=== PATIENT | male | born 1995 | race Caucasian/White ===

== ENCOUNTER 2016-08-14 09:07 | Emergency (ER) | payer MEDICAID ==
[~2016-08-14] VITALS: Wt 134.0 kg
[~2016-08-14 09:07] MED LIST: ACET325T33 PO; ASPI325T4 PO; FLUO40CA10 PO; IBUP-1542 PO; IBUP800T25 PO; NAPR-260 PO; OMEPRAZOLE PO; RANI150T9 PO
[2016-08-14] MEDS ORDERED: IBUP-1542 PO (10:03)
[2016-08-14] MEDS ORDERED: GABA300C16 PO (10:11)
--- NOTE | 2016-08-14 10:12 | RADRPT ---
PROCEDURE: XR Chest. CLINICAL INDICATION: Chest pain TECHNIQUE: Chest AP portable. COMPARISON: 05/28/2016 FINDINGS: The mediastinal structures are unremarkable. The heart is normal in size and configuration. The pu lmonary vascularity is normal. The lung [place] are unremarkable. No consolidation is identified. The pleural spaces are unremarkable. The axial skeleton is unremarkable. IMPRESSION: No active intrathoracic disease. RPTAT: HGDB .Fer Richardson MD, MD Date Time Electronically viewed and signed by .Fer Richardson MD, MD on 08/14/2016 10:12 .B/
--- NOTE | 2016-08-14 10:25 | ERD ---
ER Documentation Chief Complaint Date/Time DATE: 08/14/16 TIME: 10:25 Chief Complaint BILATERAL CALF PAIN FOR 4 DAYS. + HOMANS SIGN R LEG. HPI Patient is a 21-year-old male with OCD and GERD who presents with chest pain and calf pain. The patient has bilateral calf pain and chest pain rating down to his left arm. His dad has a history of blood clots he was concerned that maybe he had a blood clot. The symptoms started last night. He has no swelling in his legs however. He has no risk factors for DVT. He has no fevers. He took aspirin for pain. He goes to the [facility] for his care. ROS All systems reviewed and are negative except as per history of present illness. Medications Home Meds Active Scripts Ibuprofen* (Motrin*) 600 Mg Tab, 600 MG PO Q6H Y for PAIN AND OR ELEVATED TEMP, #30 TAB Prov:KIRA MURO MD 08/14/16 Reported Medications Gabapentin* (Gabapentin*) 300 Mg Capsule, 300 MG PO QHS, #60 CAP 08/14/16 Discontinued Reported Medications Aspirin* (Aspirin*) 325 Mg Tablet, 650 MG PO DAILY, TAB 10/21/15 [Omeprazole] No Conflict Check, PO DAILY 10/21/15 Fluoxetine Hcl* (Prozac*) 40 Mg Capsule, 40 MG PO DAILY, CAP 05/21/15 Discontinued Scripts Ibuprofen* (Motrin*) 800 Mg Tab, 800 MG PO Q6, #30 TAB Prov:RAFAEL FISHMAN PA-C 05/14/16 Naproxen* (Naprosyn*) 500 Mg Tablet, 500 MG PO BID Y for PAIN AND/OR INFLAMMATION, #30 TAB Prov:RASHIDA FREEDMAN PA-C 04/01/16 Ranitidine Hcl* (Zantac*) 150 Mg Tablet, 150 MG PO BID Y for EPIGASTRIC PAIN, # 30 TAB Prov:RASHIDA FREEDMAN PA-C 03/21/16 Acetaminophen* (Tylenol*) 325 Mg Tablet, 2 TAB PO Q8 Y for PAIN AND OR ELEVATED TEMP, #20 TAB Prov:RASHIDA FREEDMAN PA-C 03/21/16 Ibuprofen* (Ibuprofen*) 600 Mg Tablet, 600 MG PO Q8, #14 TAB Prov:ALYSON SPENCE DO 01/26/16 Ibuprofen* (Motrin*) 800 Mg Tab, 800 MG PO Q6H Y for PAIN AND OR ELEVATED TEMP, #30 TAB Prov:LAZARO COX PA-C 10/30/15 Allergies Allergies: Coded Allergies: No Known Allergy (Unverified , 08/14/16) PMhx/Soc History of Surgery: No Anesthesia Reaction: No Hx Neurological Disorder: Yes (SCIATICA) Hx Respiratory Disorders: No Hx Cardiac Disorders: No Hx Psychiatric Problems: Yes (OCD) Hx Miscellaneous Medical Probl: Yes (GERD) Hx Alcohol Use: Yes (RARELY) Hx Substance Use: Yes (MARIJUANA) Hx Tobacco Use: No Smoking Status: Never smoker FmHx Family History: diabetes Physical Exam Vitals Vital Signs Date Time Temp Pulse Resp B/P Pulse Ox O2 Delivery O2 Flow Rate FiO2 08/14/16 10:35 98.8 80 20 136/78 99 Room Air 08/14/16 09:10 98.8 87 20 141/84 99 Physical Exam Const: No acute distress Head: Atraumatic Eyes: Normal Conjunctiva ENT: Normal External Ears, Nose and Mouth. Neck: Full range of motion..~ No meningismus. Resp: Clear to auscultation bilaterally Cardio: Regular rate and rhythm, no murmurs Abd: Soft, non tender, non distended. Normal bowel sounds Skin: No petechiae or rashes Back: No midline or flank tenderness Ext: No cyanosis, or edema Neur: Awake and alert Psych: Anxious Procedures/MDM EKG read by me: Rate/Rhythm: Regular rate and rhythm at a rate of 90 Intervals: Normal Impression: No evidence of ischemia or arrhythmia Chest x-ray negative per radiology. Patient is a 21-year-old male presents with what appears to be acute anxiety. His EKG and chest x-ray were negative. He has no signs of DVT on physical exam. I did review the emergency department information exchange which suggested a psychologist social evaluation given the multiple visits to various emergency departments. insurance and financial services agent did an evaluation and did offer outpatient resources. The patient can return for any worsening symptoms. I do not believe he needs further workup or admission at this time. I doubt acute coronary syndrome, pneumonia, pneumothorax, pulmonary embolism, or aortic dissection. Departure Diagnosis: Primary Impression: Chest pain Chest pain type: unspecified Qualified Code: R07.9 - Chest pain, unspecified type Additional Impression: Bilateral leg pain Condition: Fair Patient Instructions: Possible Causes of Low Back or Leg Pain, Chest Pain, Uncertain Cause Referrals: Your doctor Additional Instructions: Call your primary care doctor TOMORROW for an appointment during the next 1 WEEK.Tell the upper stitcher that you were referred from this facility.See the doctor sooner or return here if your condition worsens before your appointment time. KIRA MURO MD Aug 14, 2016 10:25
[2016-08-14 10:35] VITALS: BP 136/78; PULSE 80; RESP 20; TEMP 98.8
== END 2016-08-14 10:35 | disposition home or self-care (01) ==
LOC: E/R 09:07
DX: R07.9 Chest pain, unspecified (principal); R40.2252 Coma scale, best verbal response, oriented, at arrival to emergency department; M79.605 Pain in left leg; M79.604 Pain in right leg; R40.2142 Coma scale, eyes open, spontaneous, at arrival to emergency department; R40.2362 Coma scale, best motor response, obeys commands, at arrival to emergency department; Z79.82 Long term (current) use of aspirin
CPT/HCPCS: 71010; 93005; Z7502

== ENCOUNTER 2017-01-05 09:27 | Emergency (ER) | payer MEDICAID, OTHER ==
[~2017-01-05] VITALS: Ht 195.6 cm; Wt 142.5 kg
[~2017-01-05 09:27] MED LIST changes: -ACET325T33 PO; -ASPI325T4 PO; -FLUO40CA10 PO; +GABA300C16 PO; -IBUP800T25 PO; -NAPR-260 PO; -OMEPRAZOLE PO; -RANI150T9 PO
[2017-01-05 09:34] VITALS: Ht 195.6 cm; Wt 142.5 kg
[2017-01-05] MEDS ORDERED: ASPIRIN 325 MG TAB PO STA (09:49)
[2017-01-05] MEDS ORDERED: SOD CHLORIDE 0.9% 100 ML ONE ×2 (09:55→11:53)
[2017-01-05] MEDS ORDERED: IOHEXOL 100 ML ONE (09:55)
--- NOTE | 2017-01-05 10:16 | RADRPT ---
PROCEDURE: Chest Radiograph. CLINICAL INDICATION: Chest pain TECHNIQUE: Single frontal chest radiograph. COMPARISON: Chest radiograph 06/13/2017 FINDINGS: The cardiomediastinal silhouette is within normal limits. No infiltrate or effusion is seen. Th e bones are intact. IMPRESSION: 1. Unremarkable chest radiograph. RPTAT: KK .Manuel Flores MD, MD Date Time Electronically viewed and signed by .Manuel Flores MD, on 01/05/2017 10:16 .B/
--- NOTE | 2017-01-05 10:19 | ERA ---
ER Documentation Chief Complaint Date/Time DATE: 01/05/17 TIME: 10:16 Chief Complaint bilat leg pain x 4 days CP with SOBthis am HX clots HPI This 21-year-old male comes in for chest pain that began this morning as well as left lower leg swelling and left arm pain and swelling that began last night. 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 He has mild shortness of breath. The chest pain is substernal and nonradiating. He has requested a hypercoagulable workup from his primary care doctor who refused to perform one. ROS All systems reviewed and are negative except as per history of present illness. Medications Home Meds Active Scripts Naproxen* (Naproxen*) 500 Mg Tablet, 500 MG PO BID Y for PAIN, #20 TAB Prov:MAINE LOPEZ DO 01/05/17 Ranitidine Hcl* (Zantac*) 150 Mg Tablet, 150 MG PO BID Y for EPIGASTRIC PAIN, # 30 TAB Prov:MAINE LOPEZ DO 01/05/17 Discontinued Reported Medications Gabapentin* (Gabapentin*) 300 Mg Capsule, 300 MG PO QHS, #60 CAP 08/14/16 Discontinued Scripts Ibuprofen* (Motrin*) 600 Mg Tab, 600 MG PO Q6H Y for PAIN AND OR ELEVATED TEMP, #30 TAB Prov:KIRA MURO MD 08/14/16 Allergies Allergies: Coded Allergies: No Known Allergy (Unverified , 01/05/17) PMhx/Soc History of Surgery: No Anesthesia Reaction: No Hx Neurological Disorder: Yes (SCIATICA) Hx Respiratory Disorders: No Hx Cardiac Disorders: No Hx Psychiatric Problems: Yes (OCD) Hx Miscellaneous Medical Probl: Yes (GERD) Hx Alcohol Use: Yes (RARELY) Hx Substance Use: Yes (MARIJUANA) Hx Tobacco Use: No Smoking Status: Never smoker Physical Exam Vitals Vital Signs Date Time Temp Pulse Resp B/P Pulse Ox O2 Delivery O2 Flow Rate FiO2 01/05/17 09:34 98.3 99 18 139/79 100 Physical Exam Const: [] No acute distress Head: Atraumatic Eyes: Normal Conjunctiva ENT: Normal External Ears, Nose and Mouth. Neck: Full range of motion..~ No meningismus. Resp: Clear to auscultation bilaterally Cardio: Regular rate and rhythm, no murmurs Abd: Soft, non tender, non distended. Normal bowel sounds Skin: No petechiae or rashes Back: No midline or flank tenderness Ext: No cyanosis, mild lower extremity swelling with positive Homans sign. Distal pulses intact all 4 extremities Neur: Awake and alert and oriented 3, no focal deficits Psych: Normal Mood and Affect Result Diagram: 01/05/17 1000 01/05/17 1000 Results 24 hrs Laboratory Tests Test 01/05/17 10:00 White Blood Count 8.510^3/ul Red Blood Count 5.0310^6/ul Hemoglobin 15.5g/dl Hematocrit 45.6% Mean Corpuscular Volume 90.7fl Mean Corpuscular Hemoglobin 30.8pg Mean Corpuscular Hemoglobin Concent 34.0g/dl Red Cell Distribution Width 12.6% Platelet Count 43474^3/UL Mean Platelet Volume 10.1fl Neutrophils % 70.4% Lymphocytes % 21.9% Monocytes % 5.3% Eosinophils % 1.6% Basophils % 0.6% Nucleated Red Blood Cells % 0.0/100WBC Neutrophils # 6.010^3/ul Lymphocytes # 1.910^3/ul Monocytes # 0.510^3/ul Eosinophils # 0.110^3/ul Basophils # 0.110^3/ul Nucleated Red Blood Cells # 0.010^3/ul Prothrombin Time 13.9Sec Prothrombin Time Ratio 1.1 INR International Normalized Ratio 1.07 Activated Partial Thromboplast Time 29.6Sec Sodium Level 143mmol/L Potassium Level 4.1mmol/L Chloride Level 108mmol/L Carbon Dioxide Level 25mmol/L Anion Gap 14 Blood Urea Nitrogen 12mg/dl Creatinine 1.03mg/dl Glucose Level 105mg/dl Calcium Level 9.5mg/dl Troponin I < 0.012ng/ml Current Medications Medications (Trade) Dose Ordered Sig/Quiana Route PRN Reason Start Time Stop Time Status Last Admin Dose Admin Aspirin (Aspirin) 325 mg ONCE STAT PO 01/05/17 09:49 01/05/17 09:51 DC 01/05/17 10:07 IV Flush 10 ml 10 ml STK-MED ONCE .ROUTE 01/05/17 09:55 01/05/17 09:56 DC Sodium Chloride 100 ml @ ud STK-MED ONCE .ROUTE 01/05/17 09:55 01/05/17 09:56 DC Iohexol (Omnipaque) 100 ml @ ud STK-MED ONCE .ROUTE 01/05/17 09:55 01/05/17 09:56 DC IV Flush 10 ml 10 ml STK-MED ONCE .ROUTE 01/05/17 11:53 01/05/17 11:54 DC Sodium Chloride (NS) 100 ml @ ud STK-MED ONCE .ROUTE 01/05/17 11:53 01/05/17 11:54 DC Iodixanol (Visipaque Locm) 100 ml STK-MED ONCE .ROUTE 01/05/17 11:53 01/05/17 11:54 DC Miscellaneous Medication (Gi Cocktail (2)) 40 ml ONCE ONCE PO 01/05/17 13:00 01/05/17 13:03 DC 01/05/17 13:52 Morphine Sulfate (morphine) 4 mg ONCE STAT IV 01/05/17 12:56 01/05/17 13:03 DC Procedures/MDM Chest pain and left leg pain without any PE or DVT. Patient was given a GI cocktail morphine as well as aspirin emergency room. His chest pain dissipated substantially. Is virtually asymptomatic. No signs of cardiac ischemia. No signs of DVT and patient with former DVT. When I discharge him with Zantac as well as naproxen and instructions to obtain an outpatient echocardiogram through his primary care doctor. Return precautions to the ER also given EKG interpretation: Normal sinus rhythm rate of 80, normal axis, no ST or T- wave changes concerning for acute ischemia, normal intervals. quality assurance monitor interpretation: Normal sinus rhythm without arrhythmia Chest x-ray interpretation: I see no acute process, no widened mediastinum, no pneumothorax, no infiltrates, no fractures Bilateral lower extremity ultrasound interpretation: No DVT Left upper extremity ultrasound interpretation: No DVT CTA chest interpretation: No pulmonary embolism or dissection, I see no infiltrate, no pulmonary edema, no fractures per Departure Diagnosis: Primary Impression: Chest pain Condition: Stable MAINE LOPEZ DO Jan 05, 2017 10:19
[2017-01-05 10:21] LABS: ADD SCAN DIFF NO
[2017-01-05 10:32] LABS: BASOPHIL # 0.1 10^3/ul (0.0-0.1); BASOPHILS % 0.6 % (0.0-2.0); EOSINOPHILS # 0.1 10^3/ul (0.0-0.5); EOSINOPHILS % 1.6 % (0.0-7.0); HEMATOCRIT 45.6 % (42.0-52.0); HEMOGLOBIN 15.5 g/dl (14.0-18.0); LYMPHOCYTES # 1.9 10^3/ul (0.8-2.9); LYMPHOCYTES % 21.9 % (15.0-51.0); MEAN CORPUSCULAR HEMOGLOBIN 30.8 pg (29.0-33.0); MEAN CORPUSCULAR VOLUME 90.7 fl (82.0-101.0); MEAN PLATELET VOLUME 10.1 fl (7.4-10.4); MONOCYTE # 0.5 10^3/ul (0.3-0.9); MONOCYTES % 5.3 % (0.0-11.0); NEUTROPHILS % 70.4 % (39.0-77.0); PLATELET COUNT 263 10^3/UL (140-415); RED BLOOD COUNT 5.03 10^6/ul (4.70-6.10); RED CELL DISTRIBUTION WIDTH 12.6 % (11.5-14.5); WHITE BLOOD COUNT 8.5 10^3/ul (4.8-10.8)
[2017-01-05 10:39] LABS: ANION GAP 14 (8-16); BLOOD UREA NITROGEN 12 mg/dl (7-20); CALCIUM 9.5 mg/dl (8.4-10.2); CARBON DIOXIDE 25 mmol/L (21-31); CHLORIDE 108 mmol/L (97-110); CREATININE 1.03 mg/dl (0.61-1.24); GLUCOSE 105 mg/dl (70-220); POTASSIUM 4.1 mmol/L (3.5-5.1); SODIUM 143 mmol/L (135-144)
[2017-01-05 10:47] LABS: INR 1.07; PROTIME 13.9 Sec (12.2-14.2); PT RATIO 1.1
[2017-01-05 10:48] LABS: PARTIAL THROMBOPLASTIN TIME 29.6 Sec (25.0-35.0)
[2017-01-05 10:54] LABS: TROPONIN-I < 0.012 ng/ml (0.00-0.12)
--- NOTE | 2017-01-05 11:11 | RADRPT ---
PROCEDURE: US upper extremity Venous. CLINICAL INDICATION: Left arm edema TECHNIQUE: Multiple sonographic images of the left upper extremity venous system was obtained util izing grayscale, color-flow, compressive sonography and doppler imaging with augmentation. The imag es were reviewed on a PACS workstation. COMPARISON: None. FINDINGS: There is normal compressibility and flow within the left internal jugular vein, subclavian vein, axi llary vein, brachial, basilic, cephalic, radial and ulnar veins. RPTAT: AA IMPRESSION: No sonographic evidence for venous thrombosis. .Sean Soto MD, MD Date Time Electronically viewed and signed by .Sean Soto MD, MD on 01/05/2017 11:11 .S/
--- NOTE | 2017-01-05 11:24 | RADRPT ---
PROCEDURE: US Lower extremity Venous. CLINICAL INDICATION: Bilateral lower extremity edema TECHNIQUE: Multiple sonographic images of the bilateral lower extremity deep venous system was obt ained utilizing grayscale, color-flow, compressive sonography and doppler imaging with augmentation. The images were reviewed on a PACS workstation. COMPARISON: None. FINDINGS: There is normal compressibility and flow within the bilateral common femoral, femoral , posterior ti bial and popliteal veins. RPTAT: AA IMPRESSION: No sonographic evidence for deep venous thrombosis. .Sean Soto MD, MD Date Time Electronically viewed and signed by .Sean Soto MD, on 01/05/2017 11:23 .S/
[2017-01-05] MEDS ORDERED: IODIXANOL LOCM 100 ML BTL ONE (11:53)
--- NOTE | 2017-01-05 12:17 | RADRPT ---
PROCEDURE: CTA Chest with contrast and with 3-D reconstructions CLINICAL INDICATION: hx thrombosis, R/O PE, sob, cp TECHNIQUE: The study was performed utilizing multidetector CT scanner. Direct spiral axial section s were obtained from the thoracic inlet to the upper abdomen with the use of intravenous contrast ma terial. Sagittal, coronal and 3-D reformations were obtained. The images were reviewed on a PACS wor kstation. DLP 993.64 mGycm CTDIvol 67.60, 20.20 mGy One or more of the following dose reduction techniques were used: - Automated exposure control. - Adjustment of the mA and/or kV according to patient size. - Use of iterative reconstruction technique. COMPARISON: No prior studies are available for comparison. FINDINGS: There are no pulmonary emboli. The lungs are clear. There is no pleural fluid. There is no pneumothorax. Heart size is within normal limits. There is no pericardial fluid. The aorta is within normal limi ts. There are no enlarged axillary or mediastinal lymph nodes. The visualized portions of the upper abdomen are unremarkable. Osseous and soft tissue structures are within normal limits. IMPRESSION: No CT evidence for pulmonary embolus. Clear lungs. RPTAT: EE Physician Hector Date Time Electronically viewed and signed by Physician Hector on 01/05/2017 12:16 /
[2017-01-05] MEDS ORDERED: morphine 4 MG/ML VIAL IV STA (12:56)
[2017-01-05] MEDS ORDERED: LIDOCAINE/MYLANTA 40 ML BTL PO ONE (13:00)
[2017-01-05] MEDS ORDERED: NAPR-688 PO (14:09)
[2017-01-05] MEDS ORDERED: RANI150T9 PO (14:09)
[2017-01-05 14:24] VITALS: BP 123/76; PULSE 80; RESP 16
== END 2017-01-05 15:08 | disposition home or self-care (01) ==
LOC: E/R 09:27
DX: R07.9 Chest pain, unspecified (principal)
CPT/HCPCS: 71010; 71275; 80048; 84484; 85025; 85610; 85730; 93005; 93970; 93971; Q9967; Z7502; Z7610

== ENCOUNTER 2017-10-30 23:46 | Emergency (ER) | END 2017-10-31 03:58 | disposition home or self-care (01) ==

== ENCOUNTER 2019-03-29 15:09 | Emergency (ER) | payer OTHER ==
[~2019-03-29] VITALS: Ht 195.6 cm; Wt 149.1 kg
[~2019-03-29 15:09] MED LIST changes: +ASPI-903 PO; +DILTIAZEM; +FAMO-96 PO; -GABA300C16 PO; +HYDR-843 PO; +NAPR-688 PO; +NAPR-985 PO; +RANI-535 PO
[2019-03-29 15:32] VITALS: BP 122/71; PULSE 73; RESP 20; Ht 195.6 cm; Wt 149.1 kg
[2019-03-29] MEDS ORDERED: ALBUTEROL 0.083% (NEB) 2.5 MG/3 ML AMP NEB STA (16:11)
== END 2019-03-29 17:13 | disposition home or self-care (01) ==
LOC: FTE 15:09
DX: R07.89 Other chest pain (principal)
CPT/HCPCS: 93005; 94664

== ENCOUNTER 2019-05-06 09:45 | Day surgery (SDC) | payer OTHER ==
[~2019-05-06] VITALS: Ht 195.6 cm; Wt 144.7 kg
[2019-05-06 10:55] VITALS: Ht 195.6 cm; Wt 144.7 kg
[2019-05-06 11:27] VITALS: BP 120/68; PULSE 64; RESP 18
[2019-05-06] MEDS ORDERED: ONDANSETRON 4 MG INJ IV PRN (11:30)
[2019-05-06] MEDS ORDERED: LABETALOL HCL 20MG INJ IV PRN (11:30)
[2019-05-06] MEDS ORDERED: LIDOCAINE 2% (SDV) 5 ML INJ ONE (11:34)
[2019-05-06] MEDS ORDERED: PROPOFOL 20 ML ONE ×2 (11:34→11:47)
[2019-05-06] MEDS ORDERED: FENTAnyl 50 MCG/ML VIAL ONE (11:35)
[2019-05-06 12:27] VITALS: BP 116/68; RESP 20
== END 2019-05-06 15:04 | disposition home or self-care (01) ==
LOC: GIL 09:45
PROVIDERS: ATTEND Internal Medicine Gastroenterology
DX: K29.50 Unspecified chronic gastritis without bleeding (principal); K21.0 Gastro-esophageal reflux disease with esophagitis; I10 Essential (primary) hypertension; E66.9 Obesity, unspecified; Z68.37 Body mass index [BMI] 37.0-37.9, adult
CPT/HCPCS: 43239; 88305; 88312; J3010